=== PATIENT | male | born 1955 | race Hispanic/Latino ===

== ENCOUNTER 2020-11-18 10:36 | Emergency (ER) | payer OTHER, SELFPAY ==
[2020-11-18] MEDS ORDERED: Sodium Chloride 0.9% 1,000 ML ONE (11:07)
[2020-11-18 11:16] LABS: #Basophils 0.1 thou/uL (0.0-0.2); #Monocytes 0.5 thou/uL (0.11-0.59); %Basophils 0.6 % (0.0-1.0); %Eosinophils 0.2 % (0.0-10.0); %Lymphocytes 6.9 % (21.0-51.0); %Monocytes 3.3 % (0.0-10.0); Hemoglobin 15.2 g/dL (14.0-18.0); Mean Corpuscular Hemoglobin 32.9 pg (27.0-31.0); Mean Corpuscular Volume 93.9 fL (78.0-98.0); Mean Platelet Volume 7.2 fL (7.4-10.4); Platelet Count 310 thou/uL (130-400); RBC Distribution Width 11.7 % (11.5-14.5); Red Blood Cell (RBC) Count 4.61 mill/uL (4.70-6.10); White Blood Cell (WBC) Count 14.6 thou/uL (4.8-10.8)
--- NOTE | 2020-11-18 11:43 | CT ---
CT head noncontrast HISTORY: Syncope. FINDINGS: Along the right frontoparietal inner calvarium is a lentiform, slightly lobular hyperdense fluid collection that is 3.0 cm length by 0.5 cm depth on the axial images. Minimal underlying effacement of the cerebral sulci. Small about of hyperdense fluid is also present within sulci at the floor of the right frontal lobe a nd temporal lobe, along the lateral aspect of the right temporal lobe, and extending into into the deep portions of the right sylvian fissure. Septum pellucidum is midline. Ventricles are unremarkable. Visualized paranasal sinuses remain well-aerated. Scalp swelling over the left parietal calvarium. IMPRESSION : Small right subdural hematoma and subarachnoid hemorrhage. No significant mass effect. Findings were called to Dr. Penn At the [facility] emergency department at 1131 hours. Code CR.
[2020-11-18 11:58] LABS: PTT 28.6 sec (22.9-36.1); Prothrombin Time 13.8 sec (12.0-14.7)
[2020-11-18 12:12] LABS: ALT (SGPT) 9 U/L (8-55); AST (SGOT) 13 U/L (5-34); Albumin 3.8 g/dL (3.4-4.8); Alkaline Phosphatase 72 U/L (40-110); Anion Gap 14 mmol/L (10-20); BUN (Urea Nitrogen) 10 mg/dL (8.4-25.7); Bilirubin, Total 0.4 mg/dL (0.2-1.2); CK (CPK) 72 U/L (30-200); Calc. Creatinine Clearance 0 mL/min (70-130); Calcium 8.3 mg/dL (7.8-10.44); Carbon Dioxide 21 mmol/L (23-31); Chloride 103 mmol/L (98-107); Globulin 2.8 g/dL (2.4-3.5); Glucose 110 mg/dL (80-115); Potassium 4.3 mmol/L (3.5-5.1); Protein, Total 6.6 g/dL (5.8-8.1); Sodium 134 mmol/L (136-145)
--- NOTE | 2020-11-18 12:47 | CT ---
CT CERVICAL SPINE WITHOUT CONTRAST. HISTORY Syncope. COMPARISON: None. FINDINGS: Occipital condyles are intact. Narrowing of the atlantodental interval. Severe degenerative disk sp etagan changes at C3-C6 with complete disk space height loss and large disk-osteophyte complex with neur al foraminal and spinal canal narrowing. Motion artifact of the sternum. Grade I C2-3 anterolisthesis due to high-grade facet arthrosis. No acute cervical spine fracture or malalignment. No acute traumatic facet joint widening. Lung apices are clear. Soft tissues are within normal limits. IMPRESSION: 1. No acute cervical spine fracture or malalignment. 2. 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 POS: HOME
[2020-11-18] MEDS ORDERED: levETIRAcetam 500 MG/100 ML PREMIX BAG ONE (14:42)
[2020-11-18 14:56] LABS: Bilirubin Negative (Negative); Blood, Urine Negative (Negative); Clarity Clear (Clear); Glucose, Urine (Dipstick) Negative (Negative); Ketone, Urine Negative (Negative); Leukocyte Negative (Negative); Nitrite Negative (Negative); Protein, Urine (Dipstick) Negative (Neg-Trace); Urobilinogen 0.2 mg/dL (Less than 2); pH, Urine 8.5 (5.0-9.0)
== END 2020-11-18 13:50 | disposition short-term general hospital (02) ==
LOC: EDBD → NAV ERS 10:36 → EDBD 10:36 → NAV ERS 13:50
DX: S06.5X0A Traumatic subdural hemorrhage without loss of consciousness, initial encounter (principal); S06.6X0A Traumatic subarachnoid hemorrhage without loss of consciousness, initial encounter; I10 Essential (primary) hypertension; J45.909 Unspecified asthma, uncomplicated; Z79.899 Other long term (current) drug therapy
CPT/HCPCS: 36416; 70450; 72125; 80053; 81003; 82550; 83605; 84484; 85025; 85379; 85610; 85730; 93005; 96374; J1953; J7050